=== PATIENT | female | born 1995 | race Caucasian/White ===

== ENCOUNTER 2019-08-27 08:48 | Day surgery (SDC) | payer MEDICAID ==
[2019-08-24 10:49] LABS: BASOPHILS 0.5 % (0-2); EOSINOPHILS 4.4 % (0-7); HEMATOCRIT 38.3 % (36.0-48.0); HEMOGLOBIN 12.5 g/dL (12-16); LYMPHOCYTES 40.1 % (15-50); MCH 28.8 pg (26.0-34.0); MCHC 32.6 g/dL (31.0-37.0); MCV 88.2 fL (80.0-100.0); MEAN PLATELET VOLUME 10.2 fL (7.4-10.4); PLATELET COUNT 235 10x3/uL (130-400); RBC 4.34 10x6/uL (4.00-5.40); RDW 11.8 % (11.5-14.5); WBC 4.1 10x3/uL (4.8-10.8)
[~2019-08-27] VITALS: Ht 160 cm; Wt 71.2 kg
[2019-08-27 09:45] VITALS: BP 124/64; Ht 160 cm; Wt 71.2 kg
[2019-08-27 09:55] LABS: HCG URINE NEGATIVE (NEGATIVE)
--- NOTE | 2019-08-27 14:37 | NUR ---
EDUCATED PATIENT TO USE NON-HORMONAL CONTRACEPTIVES OVER THE NEXT SEVEN DAYS TO PREVENT . PATIENT VERBALIZED UNDERSTANDING OF THE ABOVE.
--- NOTE | 2019-08-30 17:23 | OP ---
PATIENT NAME: VERA BROOKS MEDICAL RECORD: [id number] :93 LOCATION:D.OPS ADMISSION DATE: SURGEON: REINA HIGHTOWER MD DATE OF OPERATION: 08/27/2019 PREOPERATIVE DIAGNOSES: 1. Pelvic pain. 2. History of pelvic mass. POSTOPERATIVE DIAGNOSES: 1. Pelvic pain. 2. Severe pelvic adhesions. 3. Peritoneal cyst right lower quadrant. 4. Left ovarian cyst. 5. Endometriosis. PROCEDURE PERFORMED: 1. Diagnostic laparoscopy. 2. Lysis of adhesions. 3. Cystectomy. 4. Removal of peritoneal cyst. 5. Fulguration of endometriosis. SURGEON: Reina Hightower MD POLE CLIMBER: Emmanuel Robles CRNA ANESTHESIOLOGIST: Dr. Perry. ANESTHESIA: General. FINDINGS: Omentum is adhesed to the midline. The uterine fundus is adhesed to the anterior abdominal wall all the way down to the lower segment of the uterus. There is a simple 3-4 cm cyst on the left ovary. There is a 4-5 cm peritoneal inclusion cyst in the anterior abdominal wall. This is filled with blood-tinged fluid. After opening the space, active endometriosis is noted at the base as well as elements of the tube that are contained within. SPECIMEN REMOVED: None applicable. ESTIMATED BLOOD LOSS: Minimal. FLUIDS: 1400 cc of lactated Ringer's. URINE OUTPUT: Quantity sufficient void prior to this procedure. COMPLICATIONS: None. DRAINS: None. INDICATIONS: The patient is a 24-year-old female with pelvic pain and finding of cyst on ultrasound. The patient has consented for diagnostic laparoscopy and removal of pelvic mass. DESCRIPTION OF PROCEDURE: After informed consent was assured, the patient was OPERATIVE REPORT [id number] VERA BROOKS taken to the operating room where anesthetic was obtained without difficulty. The patient now prepped and draped. An incision was made at the umbilicus to accommodate a 5-mm trocar. The trocar was inserted. Pneumoperitoneum was developed with the above findings. With the above findings, it was felt prudent to place a trocar in the right lower quadrant to avoid midline trocars. This trocar was a 5-mm trocar and it was placed without difficulty after the patient has been placed in Trendelenburg. Using Thunderbeat coagulation cutter, the adhesions of the omentum are taken down in the midline to facilitate full visualization of the uterus and the adnexa bilaterally. Attention was directed to the left ovary where the cyst is identified. The cyst was opened and a portion of the cyst wall removed. This cyst was irrigated and the irrigant in the cul-de-sac removed. Uterus was found to be without active endometriosis on the posterior aspect or in the cul-de-sac. Attention was now directed back to the right side. The adhesions in the midline are inspected and found to start at the fundus of the uterus and cover completely the lower segment. To the right of the midline, there is a 4-5 cm of dark fluid contained cystic mass anteriorly. The right ovary was visualized. The right tube is visualized approximately but loose visualization as we approach the distal portions. The peritoneal cyst is open and blood-tinged fluid removed. The resection of this peritoneal cyst was carried out from the center of it to laterally to the sidewall and medially to the adhesion bands that are holding the uterus to the abdominal wall. Visualization of the full space now revealed active endometriosis at the base. This is fulgurated. The fimbria penetrates the medial or the lateral aspect of the space and portions of the tube can be seen in the inferior margins. Pelvis is copiously irrigated, irrigant removed. Pneumoperitoneum was released and the accessory trocars were removed. Primary trocars removed and skin sites closed. Sponge, lap, needle counts were correct times 2. A sterile dressing was applied. TRANSINT:[id number] Voice Confirmation ID: [id number] DOCUMENT ID: [id number] REINA HIGHTOWER MD at 1723 CC: [id number] DICTATION DATE: 08/27/19 140 [facility] [employer] REP: 08/27/19 [id number] [facility] 08/27/19 [facility] [address] [id number]
== END 2019-08-27 18:10 | disposition home or self-care (01) ==
LOC: D.OPS 08:48 → D.PAN 10:15 → D.OPS 11:00
PROVIDERS: ATTEND Obstetrics & Gynecology
DX: N83.202 Unspecified ovarian cyst, left side (principal); R10.2 Pelvic and perineal pain; R19.07 Generalized intra-abdominal and pelvic swelling, mass and lump; N99.4 Postprocedural pelvic peritoneal adhesions; K66.8 Other specified disorders of peritoneum; N80.9 Endometriosis, unspecified